=== PATIENT | male | born 1955 | race Caucasian/White ===

== ENCOUNTER 2021-08-12 20:58 | Observation (INO) | payer OTHER, SELFPAY ==
--- NOTE | ~2021-08-12 | CT_ITS ---
EXAMINATION: CT abdomen pelvis w con EXAM DATE: 08/13/2021 04:26 INDICATION: Bladder pain. Low abdominal pain. TECHNIQUE: Spiral CT of the abdomen and pelvis was performed following intravenous injection of 100 m L Omnipaque 350. Axial, coronal and sagittal images of the abdomen and pelvis were reviewed. The do se-length product (DLP) for this examination was 1168.28 mGy-cm. The exposure was tailored according to patient size (auto mA exposure control), and iterative reconstruction (ASIR) was used as addition al dose reduction technique. There is no prior study for comparison. FINDINGS: The liver, spleen, adrenal glands and pancreas are unremarkable. There are cholecystectomy clips. Portal and splenic veins are patent. Kidneys enhance symmetrically. There is no hydronephr osis. There is punctate calcification in the right superior calyx. The prostate is unremarkable. Bl adder is undistended with mildly indistinct wall, possible cystitis, or this could be reactive from i nflammation described below. There is no retroperitoneal or pelvic lymphadenopathy. There is mild scattered arteriosclerotic disease. Small umbilical fat-containing hernia. There is severe edema of the rectum, proctitis. There is inflammation surrounding the rectum and in t he presacral space. There is 7 x 9 cm mass like region on the right side of the rectum with different ial diagnosis including hematoma and solid soft tissue mass, malignancy. There is inflammation along the right side of the retroperitoneum contiguous to the right ureter. The appendix is normal. There is mild scattered colonic diverticulosis. There is no adjacent inflamm atory change to suggest diverticulitis. The stomach and small bowel are unremarkable. There is expec megan amount of colonic stool. No free intraperitoneal gas. The heart is normal in size. There are no pericardial or pleural effusions. The lung bases are unremarkable. There are no osteoblastic or osteolytic lesions identified. IMPRESSION: 1. Proctitis. Masslike region contiguous to left side of rectum which could be hematoma or solid sof t tissue mass. A follow-up pre and postcontrast CT scan can be obtained in 24 hours to help different iate. 2. Undistended bladder with indistinct wall which could be reactive or cystitis. Reviewed, dictated and finalized at location A. [facility] [employer] IMPRESSION: 1. Proctitis. Masslike region contiguous to left side of rectum which could be hematoma or solid soft tissue mass. A follow-up pre and postcontrast CT scan c an be obtained in 24 hours to help differentiate. 2. Undistended bladder with indistinct wall which could be reactive or cystiti s.
--- NOTE | ~2021-08-12 | CT_ITS ---
EXAMINATION: CT abdomen pelvis wo/w con EXAM DATE: 08/14/2021 10:01 INDICATION: 24 hour follow-up on rectal injury. See 08/13 report. TECHNIQUE: Spiral CT of the abdomen and pelvis was performed without and then with intravenous inject ion of 100 mL Omnipaque 350. Axial, coronal and sagittal images of the abdomen and pelvis were revi ewed. The dose-length product (DLP) for this examination was 2113.72 mGy-cm. The exposure was tailo red according to patient size (auto mA exposure control), and iterative reconstruction (ASIR) was use d as additional dose reduction technique. Comparison is made to prior examination from 08/13/2021. FINDINGS: Hyperdense masslike region between rectum and bladder demonstrates no enhancement, is consi stent with an acute hematoma, size unchanged at about 7 x 9 cm. There is been interval improvement in or out of the rectal wall edema. Still rather extensive perirectal inflammation and some persistent inflammation extending along the right side of the retroperitoneum, with patulous extrarenal pelvises bilaterally, but no caliectasis. No extraluminal gas or CT evidence of perforation. There is punctat e right superior calyceal stone. Bladder is unremarkable. Prostate normal in size. The liver, spleen, adrenal glands and pancreas are unremarkable. There are cholecystectomy clips. The bladder is unremarkable. There is no retroperitoneal or pelvic lymphadenopathy. There is mild scattered arteriosclerotic disease. There are no findings to suggest appendicitis. The stomach and small bowel are unremarkable. There is expected amount of colonic stool. No free intraperitoneal gas. The heart is normal in size. T here are no pericardial or pleural effusions. The lung bases are unremarkable. Several small sclero tic regions in pelvis, ribs and L4, probably bone islands, but correlation could be made with PSA lev els. Moderate size thoracic bridging endplate osteophytes. IMPRESSION: 1. Large hematoma between rectum and bladder, size stable. 2. Improving rectal wall edema. Persistent pelvic and right retroperitoneal inflammation. No extralu tee gas. 3. Several small sclerotic foci likely bone islands but recommend correlating with PSA levels. 4. Punctate right nephrolithiasis. Reviewed, dictated and finalized at location A. [facility] IMPRESSION: 1. Large hematoma between rectum and bladder, size stable. 2. Improving rectal wall edema. Persistent pelvic and right retroperitoneal in flammation. No extraluminal gas. 3. Several small sclerotic foci likely bone islands but recommend correlating with PSA levels. 4. Punctate right nephrolithiasis.
--- NOTE | ~2021-08-12 | XR_ITS ---
EXAMINATION: XR abdomen/kub 1V DATE: 08/14/2021 08:44 INDICATION: Proctitis. Rectal hematoma. Rectal penetration. TECHNIQUE: A supine view of the abdomen on 2 radiographs was obtained. COMPARISON: CT abdomen and pelvis 08/13/2021 FINDINGS: There are no dilated loops of bowel. Surgical clips in the right upper quadrant are likely from cholecystectomy. There are phleboliths in the pelvis. IMPRESSION: 1. Normal bowel gas pattern. Reviewed, dictated and finalized at location [facility]. [employer]
[2021-08-12 21:04] VITALS: BP 136/90; PULSE 110; RESP 22; TEMP 36.6; O2SAT 100
[2021-08-13] VITALS (12 sets, daily range): BP systolic 116–146; BP diastolic 59–96; PULSE 80–101; RESP 16–18; TEMP 36.7–37.2; O2SAT 95–100; BMI 32.8
--- NOTE | 2021-08-13 02:39 | ED.GENADULT ---
HPI - General Adult General Chief complaint: Urogenital-Male Stated complaint: bladder pain Time Seen by Provider: 08/13/21 02:39 Source: RN notes reviewed History of Present Illness HPI narrative: Patient presents emergency department from home for lower abdominal pain. Patient states symptoms began approximately 3:00 today. States she has some aching in the lower abdomen region he states that at that time he felt he needed to urinate but cannot urinate he states that he self caths himself approximately once a month secondary to him having some scar tissue down by his prostate he is followed by Dr. Jimenez for this. He states that pain self cath himself but had very little urine come out he states that following that he had tried taking a hot bath and again tried with little urine output states he continues to have aching in the lower abdomen he cannot sit down secondary to the discomfort he states that he has had 2 small episodes of urination in the emergency department he denies any fevers or chills chest pain shortness of breath or any other symptoms Related Data Home Medications Medication Instructions Recorded Confirmed Creon 1 cap PO QPM PRN 08/13/21 08/13/21 aspirin 81 mg PO HS 08/13/21 08/13/21 atorvastatin 20 mg PO HS 08/13/21 08/13/21 celecoxib 200 mg PO BID 08/13/21 08/13/21 diltiazem HCl 240 mg PO HS 08/13/21 08/13/21 losartan 50 mg PO HS 08/13/21 08/13/21 omeprazole 20 mg PO QPM PRN 08/13/21 08/13/21 tramadol 50 mg PO PRN PRN 08/13/21 08/13/21 Allergies Allergy/AdvReac Type Severity Reaction Status Date / Time No Known Allergies Allergy Unknown Verified 08/13/21 11:20 Review of Systems Review of Systems: Gen.: Denies fevers or chills ENT: Denies congestion Respiratory: Denies shortness of breath or cough CV: Denies chest pain or palpitations GI: Reports lower abdominal pain denies nausea, emesis or diarrhea reports difficulty urinating Musculoskeletal: Denies back pain or muscle pain Neuro: Denies numbness, tingling, weakness or focal weakness Skin: Denies rash Except as documented, all other systems reviewed and negative [facility] Past Medical History Medical History (Updated 08/14/21 @ 15:25 by Keyon Crum MD) Anxiety Benign prostate hyperplasia COVID-19 (01/2020) Hypercholesterolemia Hypertension (Unknown) Paroxysmal atrial fibrillation Status post cardiac ablation. Surgical History Surgical History History of bilateral inguinal hernia repair History of cardiac radiofrequency ablation History of cholecystectomy Laparoscopic cholecystectomy in History of endoscopic retrograde cholangiopancreatography History of right knee joint replacement (06/2021) History of tonsillectomy History of transurethral resection of prostate Family History Family History Father Emphysema lung Mother Brain cancer Sibling Sepsis Social History Social History Social History: Surrogate decision maker: Zuly Jeanette, spouse. Code status: Full code. Smoking status: Never smoker Alcohol intake: current Drinks per week: 1 Substance use: current Substance use type: does not use Additional living arrangements comments: Lives in [place] with his . Exam Narrative: APPEARANCE: No acute distress, nontoxic, resting in bed EYES: EOMI HEENT: Normocephalic, atraumatic, OMM RESPIRATORY: No respiratory distress Clear to auscultation bilaterally with no rhonchi wheezing or rales. CARDIOVASCULAR: Regular rate and rhythm without murmurs rubs or gallops. ABDOMINAL: Soft, nondistended tender palpation suprapubic, right lower quadrant left lower quadrant no tenderness right upper quadrant left upper quadrant no rebound or guarding MUSCULOSKELETAl: Moves all extremities. No clubbing, cyanosis or edema. NEUR
[2021-08-13 03:15] LABS: Alanine Aminotransferase 27 U/L (4-50); Albumin Level 4.5 g/dL (3.5-5.1); Alkaline Phosphatase 73 U/L (38-126); Anion Gap 12 mmol/L (8-16); Aspartate Amino Transferase 25 U/L (17-59); Bilirubin,Total 0.8 mg/dL (0.2-1.3); Blood Urea Nitrogen 23 mg/dL (9-20); Calcium 9.6 mg/dL (8.4-10.2); Carbon Dioxide 21 mmol/L (22-30); Chloride 106 mmol/L (98-107); Estimated CRCL calculation 75 ml/min; Estimated Glomerular Filt Rate > 60; Glucose 171 mg/dL (65-110); Potassium 4.4 mmol/L (3.4-5.0); Sodium 139 mmol/L (137-145)
[2021-08-13 03:20] LABS: Basophils Absolute Auto 0.1 K/mm3 (0.0-0.1); Basophils Percent Auto 0.2 % (0.2-1.2); Immature Granulocyte Absolute 0.15 K/mm3 (0.00-0.031); Immature Granulocyte Percent A 0.7 % (0-0.5); Lymphocytes Absolute Auto 0.82 K/mm3 (0.9-3.2); Mean Corpuscular HGB Conc 32.5 g/dl (32-36); Mean Corpuscular Hemoglobin 30.6 pg (26-34); Mean Corpuscular Volume 94.1 fl (80-100); Mean Platelet Volume 10.4 fl (7.4-10.4); Monocytes Absolute Auto 0.8 K/mm3 (0.1-0.6); Neutrophils Absolute Auto 18.9 K/mm3 (1.3-6.7); Neutrophils Percent Auto 91.1 % (45.5-73.1); Platelet Count Result 284 k/mm3 (150-375); Red Blood Count 4.25 M/mm3 (4.6-6.20); Red Cell Distribution Width 12.8 % (11.5-14.5); White Blood Count 20.7 K/mm3 (4.5-10.0)
[2021-08-13] MEDS: SODIUM CHLORIDE 0.9% IV 1,000 ML 999 ML IV CONT (03:50)
[2021-08-13] MEDS: MORPHINE SULFATE (*CRX) 4 MG/ML INJ 2 MG IV PUSH (04:06)
[2021-08-13 04:11] LABS: Lactic Acid Reflex 1.5 mmol/L (0.7-2.1)
[2021-08-13 04:40] LABS: Add Urine Microscopic? YES; Appearance Urine Clear (Clear); Bacteria Urine Trace /hpf; Bilirubin Urine Negative (Negative); Blood Urine 2+ (Negative); Color Urine Yellow (Yellow); Glucose Urine UA 1+ mg/dL (Negative); Ketones Urine Trace mg/dL (Negative); Leukocyte Esterase Ur Negative LEU/UL (Negative); Mucus Urine Heavy /lpf; Nitrate Urine Negative (Negative); Protein Urine 1+ mg/dL (Negative); Specific Grav Ur 1.025 (1.001-1.035); Squamous Epithelial Cell Urine Rare /hpf (Few); Urobilinogen Urine Negative mg/dL (<2.0); WBC Urine 0-3 /hpf
--- NOTE | 2021-08-13 08:02 | PC.NURSE ---
Assumed care of pt at this time, per edp esha pt awaiting surgery consult call back. Pt provided warm blanket and lights dimmed, vss.
[2021-08-13] MEDS: SODIUM CHLORIDE 0.9% IV 1,000 ML 125 ML IV CONT ×2 (08:22→16:31)
[2021-08-13 08:42] LABS: Prothrombin Time 13.4 Seconds (11.1-14.7)
[2021-08-13 08:43] LABS: Partial Thromboplastin Time 32.6 SECONDS (22.3-36.8)
[2021-08-13 09:09] LABS: Hematocrit 33.7 % (42.0-52.0); Hemoglobin 11.2 g/dL (14.0-18.0)
--- NOTE | 2021-08-13 09:56 | PC.NURSE ---
Pt ambulatory to restroom with steady gait, pt reports pain was under control until he got up to use the restroom.
[2021-08-13] MEDS: MORPHINE SULFATE (*CRX) 4 MG/ML INJ IV PUSH ×2 (10:11→15:30)
--- NOTE | 2021-08-13 10:14 | PC.NURSE ---
Pt medicated per oct, placed back on stretcher, call light in reach.
--- NOTE | 2021-08-13 10:18 | PC.NURSE ---
pt report called to Elisha in pacu at this time, pt to be transferred to [facility]. Pt updated on plan of care.
--- NOTE | 2021-08-13 11:14 | ADMGEN ---
This patient, Daniel Reid, was admitted to [place] [id number]. Patient/family oriented to hospital policies and general routines including ID bracelet, bed and alarms, visiting hours, pain management, procedures, bathroom and other care routines, personal items, smoking policy, room service/diet, and visiting hours. Information on how to activate the Rapid Response Team has been discussed. Patient/Family are encouraged to report perceived risks to care and to ask questions if they do not understand what they are told or what they should do.
--- NOTE | 2021-08-13 13:45 | WPDCN ---
Assessment and Plan Assessment and plan (1) Intra-abdominal hematoma: Status: Acute Assessment and Plan: CT of the abdomen and pelvis showed evidence of proctitis with a 7 x 9 cm presumed hematoma in the pelvis contiguous with the right side of the rectum, felt to be related to rectal trauma as per HPI. Empirically has been started on Zosyn and he will be NPO for now. Hemoglobin and hematocrit will be trended and he will be transfused if indicated. Aspirin and Celebrex are on hold in case he requires surgery. Analgesics available as needed. Case discussed with Dr. Crum and the plan is for repeat CT of the abdomen pelvis tomorrow without and then with contrast. (2) Proctitis: Code(s): K62.89 - Other specified diseases of anus and rectum Status: Acute Assessment and Plan: Plan is as detailed above. (3) Leukocytosis: Code(s): D72.829 - Elevated white blood cell count, unspecified Status: Acute Assessment and Plan: On empiric Zosyn for possible associated infection. May be stress response. Blood cultures pending. (4) Hyperglycemia: Code(s): R73.9 - Hyperglycemia, unspecified Status: Acute Assessment and Plan: Check fasting glucose and hemoglobin A1c. (5) Hypertension: Code(s): I10 - Essential (primary) hypertension Status: Chronic Assessment and Plan: His antihypertensives will be reviewed and resumed as appropriate. Dr. Crum is okay with medications with sips of water. (6) Paroxysmal atrial fibrillation: Code(s): I48.0 - Paroxysmal atrial fibrillation Status: Acute Assessment and Plan: Status post cardiac ablation. He is in a sinus rhythm. (7) Benign prostate hyperplasia: Code(s): N40.0 - Benign prostatic hyperplasia without lower urinary tract symptoms Status: Inactive Assessment and Plan: No acute issues. He had a TURP done several years ago. Additional Plan Thank you for allowing us to participate in this patient's care. Please do not hesitate to contact us with any questions. Supervising physician for this medical consultation is Dr. Juan Centeno. [facility] Data of Consult Date/Time: 08/13/21 13:45 Requesting Physician: Keyon Crum MD Primary Care Provider: PHYSICIAN NOT ON STAFF Consult Narrative Narrative: This is a pleasant 66-year-old male with hypertension, benign prostatic hyperplasia, and paroxysmal atrial fibrillation status post ablation whom the hospitalist service has been consulted for management of his medical conditions. Yesterday afternoon the patient used a vibrator in his rectum in approximately 2 hours thereafter he began feeling some discomfort in the suprapubic region and to a lesser extent in the rectum. He thought that perhaps he was retaining urine given his history of BPH requiring intermittent self catheterization, and he tried to self catheterization without relief. His pain got quite severe and several hours thereafter he developed chills, sweats, and nausea and he presented to the emergency department. A CT of the abdomen and pelvis showed proctitis with a masslike region contiguous with the right side of the rectum which could be a hematoma or soft tissue mass. The bladder was nondistended with an indistinct wall. He has since been started on broad-spectrum antibiotics and IV fluids and he was admitted to the surgery service. As mentioned we have been consulted to help manage his medical conditions. At the time my evaluation he is still having suprapubic discomfort and he is having some tenderness in the perirectal region. He had a small soft bowel movement earlier today without pain though he does mention having a small amount of bright red blood on the toilet tissue. Of note the patient does take a baby aspirin daily however did not take it this
--- NOTE | 2021-08-13 15:54 | PM.CNGS ---
Assessment and Plan Assessment and plan (1) Intra-abdominal hematoma: Status: Acute History of Present Illness Consult details Consult date: 08/13/21 Review of Systems Review of Systems: All systems reviewed & are unremarkable except as noted in HPI and below Constitutional: Constitutional: Reports as per HPI, Denies chills, Denies fatigue and Denies fever(s) Eyes: Eyes: Reports no additional eye complaints ENT: Reports system reviewed and no additional complaints, except as documented and Reports Normal hearing present Cardiovascular: Cardiovascular: Reports no additional cardiovascular complaints, Denies chest pain and Denies leg edema Respiratory: Respiratory: Reports no additional respiratory complaints, Denies cough and Denies dyspnea Gastrointestinal: Gastrointestinal: Reports as per HPI, Reports no additional gastrointestinal complaints, Reports abdominal pain (suprapubic pain), Denies bloating, Denies hematochezia, Denies change in bowel habits, Denies change in stool character, Denies constipation, Denies diarrhea, Denies nausea and Denies vomiting Genitourinary: Genitourinary: Denies hematuria, Denies dysuria, Denies penile discharge, Denies urinary frequency, Reports urinary hesitancy (has previously had to catheterize himself at home regularly), Denies urinary incontinence and Denies urinary urgency Musculoskeletal: Musculoskeletal: Denies deformity and Denies joint swelling Integumentary/Breasts: Skin/Breast: Denies wounds and Denies jaundice Neurologic: Reports system reviewed and no additional complaints, except as documented, Denies dizziness, Denies focal weakness, Denies numbness and Denies tingling PMFSH Past Medical History Medical History Anxiety Benign prostate hyperplasia COVID-19 (01/2020) Hypercholesterolemia Hypertension Paroxysmal atrial fibrillation Status post cardiac ablation. Surgical History Surgical History History of bilateral inguinal hernia repair History of cardiac radiofrequency ablation History of cholecystectomy Laparoscopic cholecystectomy in 1989' History of endoscopic retrograde cholangiopancreatography History of right knee joint replacement (06/2021) History of tonsillectomy History of transurethral resection of prostate Family History Family History Father Emphysema lung Mother Brain cancer Sibling Sepsis Social History Social History Social History: Surrogate decision maker: Zuly Reid, spouse. Code status: Full code. Smoking status: Never smoker Alcohol intake: current Drinks per week: 1 Substance use: current Substance use type: does not use Additional living arrangements comments: Lives in [place] with his . Meds Home Medications and Allergies Home Medications Medication Instructions Recorded Confirmed Type aspirin 81 mg PO HS 08/13/21 08/13/21 History atorvastatin 20 mg PO HS 08/13/21 08/13/21 History celecoxib 200 mg PO BID 08/13/21 08/13/21 History diltiazem HCl 240 mg PO HS 08/13/21 08/13/21 History [id number] [Creon] 1 cap PO QPM PRN 08/13/21 08/13/21 History losartan 50 mg PO HS 08/13/21 08/13/21 History omeprazole 20 mg PO QPM PRN 08/13/21 08/13/21 History tramadol 50 mg PO PRN PRN 08/13/21 08/13/21 History Allergies Allergy/AdvReac Type Severity Reaction Status Date / Time No Known Allergies Allergy Unknown Verified 08/13/21 11:20 Vital Signs Vital Signs - 24 hr 08/12/21 21:04 08/13/21 02:27 08/13/21 03:19 Temperature 97.8 F Pulse Rate 110 H 100 98 Respiratory Rate 22 H 18 18 Blood Pressure 136/90 123/81 139/90 Pulse Oximetry 100 97 100 08/13/21 04:32 08/13/21 05:01 08/13/21 05:10 Temperature Pulse Rate 90 93 95 Respiratory Rate 18 1
--- NOTE | 2021-08-13 16:16 | PM.IMHP ---
H&P: HPI History of Present Illness Date/Time: 08/13/21 14:16 Chief Complaint: Suprapubic pain Narrative: This is a 66-year-old male with a history of hypertension, paroxysmal atrial fibrillation s/p cardiac ablation, and BPH, who presented to the ER with complaints of suprapubic pain. He reports that yesterday around 2:00 pm he used a vibrator in his rectum and about 2 hours later developed an onset of rectal discomfort and suprapubic abdominal pain. He has required self catheterization at home due to scar tissue following his TURP almost 10 years ago, but only has to do this now about monthly. He reports trying to catheterize himself at home without relief. Due to the continued pain, he presented to the ER for evaluation. CT scan of the abdomen and pelvis showed procitis with a masslike region contiguous to right side of rectum which could be hematoma or solid soft tissue mass, and a nondistended bladder with an indistinct wall. Labs showed a WBC count of 20,000, hemoglobin 13, hematocrit 40, and lactic acid 1.5. His heart rate was initially 110 but this has come down to normal with his heart rate currently in the 80's. Blood pressure has been stable. Our service was consulted by the ED physician for the possible hematoma contiguous to the rectum. The patient has been admitted and started on broad-spectrum IV antibiotics, IV fluids, and made NPO. He has had a repeat H/H that showed his hemoglobin came down to 11.2. The patient remains hemodynamically stable. The patient is now seen in pre-operative area as an overflow patient. He still reports some suprapubic pain and mild rectal discomfort. He feels the Morphine did help his pain slightly for about 30 minutes and then wore off. He denies bloating, nausea, or vomiting. No other complaints. He reports flatus and has had a total of 4 small but formed bowel movements overnight and into this morning. Review of Systems Review of Systems: All systems reviewed & are unremarkable except as noted in HPI and below Constitutional: Constitutional: Reports as per HPI, Denies chills, Denies fatigue and Denies fever(s) Eyes: Eyes: Reports no additional eye complaints ENT: Reports system reviewed and no additional complaints, except as documented and Reports Normal hearing present Cardiovascular: Cardiovascular: Reports no additional cardiovascular complaints, Denies chest pain, Denies leg edema and Denies dyspnea Respiratory: Respiratory: Reports no additional respiratory complaints, Denies cough and Denies dyspnea Gastrointestinal: Gastrointestinal: Reports as per HPI, Reports no additional gastrointestinal complaints, Reports abdominal pain (suprapubic), Denies melena, Denies bloating, Denies hematochezia, Denies change in bowel habits, Denies change in stool character, Denies constipation, Denies diarrhea, Denies nausea and Denies vomiting Genitourinary: Genitourinary: Denies hematuria, Denies dysuria, Denies flank pain, Denies penile discharge, Denies urinary frequency, Reports urinary hesitancy (hx BPH, TURP, previously required self catheterization at home) and Denies urinary urgency Musculoskeletal: Musculoskeletal: Denies deformity and Denies joint swelling Integumentary/Breasts: Skin/Breast: Denies wounds and Denies jaundice Neurologic: Reports system reviewed and no additional complaints, except as documented, Reports Normal hearing present, Denies focal weakness, Denies numbness and Denies tingling PMFSH Past Medical History Medical History Anxiety Benign prostate hyperplasia COVID-19 (01/2020) Hypercholesterolemia Hypertension Paroxysmal atrial fibrillation Status post cardiac ablation. Surgical History Surgical History History of bilateral inguinal hernia repair History of cardiac radiofrequency ablation History of cholecystectomy Laparoscopic cholecystectomy in Hist
[2021-08-13 18:16] LABS: Hematocrit 33.9 % (42.0-52.0); Hemoglobin 11.3 g/dL (14.0-18.0)
[2021-08-14 00:21] VITALS: TEMP 37.1
[2021-08-14 00:54] LABS: Hematocrit 33.2 % (42.0-52.0); Hemoglobin 10.8 g/dL (14.0-18.0)
[2021-08-14] MEDS: SODIUM CHLORIDE 0.9% IV 1,000 ML 125 ML IV CONT (01:23)
[2021-08-14 01:25] VITALS: BP 130/70; PULSE 85; RESP 18; O2SAT 98
[2021-08-14] MEDS: LOSARTAN POTASSIUM 50 MG TABLET PO (01:30)
[2021-08-14] MEDS: traMADol HCL (*CRX) 50 MG TABLET PO (02:08)
[2021-08-14 05:39] VITALS: BP 127/98; PULSE 82; RESP 18; TEMP 36.8; O2SAT 94
[2021-08-14 06:28] LABS: Basophils Absolute Auto 0.1 K/mm3 (0.0-0.1); Basophils Percent Auto 0.6 % (0.2-1.2); Eosinophils Absolute Auto 0.2 K/mm3 (0-0.3); Eosinophils Percent Auto 1.4 % (0-4.4); Hematocrit 31.8 % (42.0-52.0); Hemoglobin 10.3 g/dL (14.0-18.0); Immature Granulocyte Absolute 0.08 K/mm3 (0.00-0.031); Immature Granulocyte Percent A 0.7 % (0-0.5); Lymphocytes Percent Auto 17.6 % (18.3-44.2); Mean Corpuscular HGB Conc 32.4 g/dl (32-36); Mean Corpuscular Hemoglobin 30.7 pg (26-34); Mean Corpuscular Volume 94.6 fl (80-100); Mean Platelet Volume 10.3 fl (7.4-10.4); Monocytes Absolute Auto 0.8 K/mm3 (0.1-0.6); Monocytes Percent Auto 7.8 % (2.6-8.5); Neutrophils Absolute Auto 7.8 K/mm3 (1.3-6.7); Neutrophils Percent Auto 71.9 % (45.5-73.1); Platelet Count Result 179 k/mm3 (150-375); Red Blood Count 3.36 M/mm3 (4.6-6.20); Red Cell Distribution Width 12.9 % (11.5-14.5); White Blood Count 10.8 K/mm3 (4.5-10.0)
[2021-08-14 06:39] LABS: Hemoglobin A1C 5.4 % (<5.7)
[2021-08-14 06:40] LABS: Alanine Aminotransferase 20 U/L (4-50); Albumin Level 3.5 g/dL (3.5-5.1); Alkaline Phosphatase 53 U/L (38-126); Anion Gap 5 mmol/L (8-16); Aspartate Amino Transferase 20 U/L (17-59); Bilirubin,Total 0.6 mg/dL (0.2-1.3); Blood Urea Nitrogen 12 mg/dL (9-20); Calcium 8.3 mg/dL (8.4-10.2); Carbon Dioxide 26 mmol/L (22-30); Chloride 106 mmol/L (98-107); Estimated CRCL calculation 74 ml/min; Estimated Glomerular Filt Rate > 60; Glucose 103 mg/dL (65-110); Potassium 3.6 mmol/L (3.4-5.0); Sodium 137 mmol/L (137-145)
[2021-08-14 06:54] LABS: Magnesium 2.1 mg/dL (1.6-2.3)
--- NOTE | 2021-08-14 07:30 | PM.IMPN ---
Progress Note: A&P Assessment and Plan (1) Intra-abdominal hematoma: Status: Acute Assessment and Plan: CT of the abdomen and pelvis showed proctitis with a 7 x 9 cm presumed hematoma in the pelvis contiguous with the right side of the rectum Related to rectal trauma Continue Zosyn 3.375 Q6hr Hemoglobin and hematocrit stable at this time 10.3/31.8, however are tending down, continue to trend Q6hr Continue to hold Aspirin and Celebrex, since H/H continues to trend down Analgesics: Tylenol 1000mg Q6hr, Dilaudid 0.5mg IV Q2hr PRN, Tramadol 50mg PO Q6hr PRN Dr. Crum Consulted thank you repeat CT of the abdomen pelvis w/wo contrast pending KUB pending Continue to keep patient NPO (2) Proctitis: Code(s): K62.89 - Other specified diseases of anus and rectum Status: Acute Assessment and Plan: Plan is as detailed above. (3) Leukocytosis: Code(s): D72.829 - Elevated white blood cell count, unspecified Status: Acute Assessment and Plan: WBC down to 10.8 today, down from 20.7 upon admission Continue IV Zosyn Blood culture NGTD Continue to trend (4) Hyperglycemia: Code(s): R73.9 - Hyperglycemia, unspecified Status: Acute Assessment and Plan: Glucose 171 upon admission A1c 5.4 Glucose this morning 103 No indication for accu cheks at this time Continue to trend glucose per am labs (5) Hypertension: Onset Date: Unknown Code(s): I10 - Essential (primary) hypertension Status: Chronic Assessment and Plan: Current BP is 112/66 Continue home cardizem 240mg PO at night, losartan 50mg PO at night Trend BP Adjust therapy as indicated (6) Paroxysmal atrial fibrillation: Code(s): I48.0 - Paroxysmal atrial fibrillation Status: Acute Assessment and Plan: Status post cardiac ablation Per auscultation rate and rhythm is normal (7) Benign prostate hyperplasia: Code(s): N40.0 - Benign prostatic hyperplasia without lower urinary tract symptoms Status: Inactive Assessment and Plan: No acute issues reported TURP done several years ago trend urine output Bladder scan if indicated (8) Hyperlipidemia: Code(s): E78.5 - Hyperlipidemia, unspecified Status: Acute Assessment and Plan: LFT are normal will hold atorvastatin for now Restart when appropriate Time Spent With Patient Time with patient: 25 - 35 minutes Subjective Date/time seen: 08/14/21 07:30 Interval history: Date/Time: 08/13/21 13:45 Narrative: This is a pleasant 66-year-old male with hypertension, benign prostatic hyperplasia, and paroxysmal atrial fibrillation status post ablation whom the hospitalist service has been consulted for management of his medical conditions. Yesterday afternoon the patient used a vibrator in his rectum in approximately 2 hours thereafter he began feeling some discomfort in the suprapubic region and to a lesser extent in the rectum. He thought that perhaps he was retaining urine given his history of BPH requiring intermittent self catheterization, and he tried to self catheterization without relief. His pain got quite severe and several hours thereafter he developed chills, sweats, and nausea and he presented to the emergency department. A CT of the abdomen and pelvis showed proctitis with a masslike region contiguous with the right side of the rectum which could be a hematoma or soft tissue mass. The bladder was nondistended with an indistinct wall. He has since been started on broad-spectrum antibiotics and IV fluids and he was admitted to the surgery service. As mentioned we have been consulted to help manage his medical conditions. At the time my evaluation he is still having suprapubic discomfort and he is having some tenderness in the perirectal region. He had a small soft bowel movement earlier today without pain though he does mention gunderson
--- NOTE | 2021-08-14 07:30 | P.PNIM_ITS ---
Progress Note: A&P Assessment and Plan (1) Intra-abdominal hematoma: Status: Acute Assessment and Plan: * CT of the abdomen and pelvis showed proctitis with a 7 x 9 cm presumed hematoma in the pelvis contiguous with the right side of the rectum * Related to rectal trauma * Continue Zosyn 3.375 Q6hr * Hemoglobin and hematocrit stable at this time 10.3/31.8, however are tending down, continue to trend Q6hr * Continue to hold Aspirin and Celebrex, since H/H continues to trend down * Analgesics: Tylenol 1000mg Q6hr, Dilaudid 0.5mg IV Q2hr PRN, Tramadol 50mg PO Q6hr PRN * Dr. Crum Consulted thank you * repeat CT of the abdomen pelvis w/wo contrast pending * KUB pending * Continue to keep patient NPO (2) Proctitis: Code(s): K62.89 - Other specified diseases of anus and rectum Status: Acute Assessment and Plan: * Plan is as detailed above. (3) Leukocytosis: Code(s): D72.829 - Elevated white blood cell count, unspecified Status: Acute Assessment and Plan: * WBC down to 10.8 today, down from 20.7 upon admission * Continue IV Zosyn * Blood culture NGTD * Continue to trend (4) Hyperglycemia: Code(s): R73.9 - Hyperglycemia, unspecified Status: Acute Assessment and Plan: * Glucose 171 upon admission * A1c 5.4 * Glucose this morning 103 * No indication for accu cheks at this time * Continue to trend glucose per am labs (5) Hypertension: Onset Date: Unknown Code(s): I10 - Essential (primary) hypertension Status: Chronic Assessment and Plan: * Current BP is 112/66 * Continue home cardizem 240mg PO at night, losartan 50mg PO at night * Trend BP * Adjust therapy as indicated (6) Paroxysmal atrial fibrillation: Code(s): I48.0 - Paroxysmal atrial fibrillation Status: Acute Assessment and Plan: * Status post cardiac ablation * Per auscultation rate and rhythm is normal (7) Benign prostate hyperplasia: Code(s): N40.0 - Benign prostatic hyperplasia without lower urinary tract symptoms Status: Inactive Assessment and Plan: * No acute issues reported * TURP done several years ago * trend urine output * Bladder scan if indicated (8) Hyperlipidemia: Code(s): E78.5 - Hyperlipidemia, unspecified Status: Acute Assessment and Plan: * LFT are normal * will hold atorvastatin for now * Restart when appropriate Time Spent With Patient Time with patient: 25 - 35 minutes Subjective Date/time seen: 08/14/21 07:30 Interval history: Date/Time: 08/13/21 13:45 Narrative: This is a pleasant 66-year-old male with hypertension, benign prostatic hyperplasia, and paroxysmal atrial fibrillation status post ablation whom the hospitalist service has been consulted for management of his medical conditions. Yesterday afternoon the patient used a vibrator in his rectum in approximately 2 hours thereafter he began feeling some discomfort in the suprapubic region and to a lesser extent in the rectum. He thought that perhaps he was retaining urine given his history of BPH requiring intermittent self catheterization, and he tried to self catheterization without relief. His pain got quite severe and several hours thereafter he developed chills, sweats, and nausea and he presented to the emergency department. A CT of the abdomen and pelvis showed proctitis with a masslike region contiguous with the right side of the rectum which could be a hem
[2021-08-14 08:00] VITALS: BP 112/66; PULSE 84; RESP 16; TEMP 36.9; O2SAT 95
[2021-08-14] MEDS: PANTOPRAZOLE SODIUM IV 40 MG VIAL IV PUSH (09:03)
[2021-08-14 12:38] LABS: Hematocrit 34.2 % (42.0-52.0); Hemoglobin 11.1 g/dL (14.0-18.0)
[2021-08-14 14:18] VITALS: BP 122/65; PULSE 81; RESP 14; TEMP 36.9; O2SAT 96
--- NOTE | 2021-08-14 15:15 | PM.DS ---
DS: Admitting Diagnosis Discharge Date 08/14/2021 Admitting Diagnosis 1. Perirectal hematoma 2. History of BPH status post transurethral prostatectomy. DS: Discharge Diagnosis Discharge Diagnosis (1) Perirectal hematoma: Onset Date: ~07/2021 Code(s): S36.62XA - Contusion of rectum, initial encounter Status: Acute Assessment and Plan: This was the main reason for the patient's admission. After workup in ED, patient admitted to intro rectal stimulation with a vibrator. This probably caused an injury with hematoma forming between the urinary bladder and rectum more to the right. Patient was Observed [address] CT scan with and without contrast was completed revealing no hydronephrosis on the right and no significant change in size of the retroperitoneal hematoma along the rectum between it and the urinary bladder. during the period of observation he was able to urinate without difficulty and also had some loose stools. No free intra-abdominal air or air within the hematoma was noted on repeat CT scan and therefore, it was not felt that there was any rectal full-thickness injury. Patient's white count came down appropriately while on IV antibiotics and he will be sent home on 5 days of oral antibiotics ( Levaquin and Flagyl). (2) Hypertension: Onset Date: Unknown Code(s): I10 - Essential (primary) hypertension Status: Chronic Assessment and Plan: Initial and presentation is blood pressure was up but it came down nicely as we resumed his usual home meds. (3) Hyperglycemia: Code(s): R73.9 - Hyperglycemia, unspecified Status: Acute Assessment and Plan: Possibly more related to stress and inflammation at the time of his admission. Repeat glucose on CMP day of discharge is close to normal. (4) Proctitis: Code(s): K62.89 - Other specified diseases of anus and rectum Status: Acute Assessment and Plan: Inflammation near the rectum probably related to patient is self stimulation. Also to possible bruising of the rectal wall with development of hematoma between the rectum and bladder. (5) Leukocytosis: Code(s): D72.829 - Elevated white blood cell count, unspecified Status: Acute DS: Summary Hospital Course Reason for hospitalization: Inflammation and hematoma just outside the rectum between it and the bladder. Hospital Course: His self stimulation probably caused an injury with hematoma forming between the urinary bladder and rectum more to the right. Patient was observed 24 hours [address] a repeat CT scan with and without contrast was completed revealing, no hydronephrosis on the right, and no significant change in size of the retroperitoneal hematoma along the rectum between it and the urinary bladder. No free intra-abdominal air or air within the hematoma was noted on repeat CT scan and therefore was it not felt that there was any rectal full-thickness injury. (the inflammation seen on the original CT scan 24 hours prior had settled significantly). Patient's white count came down appropriately while on IV antibiotics and he will be sent home on 5 days of oral antibiotics ( Levaquin and Flagyl). patient will also use heat at home on the area gently early to prevent any injury to the skin. He will use tramadol that he already has + I renewed to fresh prescription for any pain that he has and try to gradually wean back on this over the next 3-4 days. He will be followed up in the office in 1 week. Status at Discharge Cognitive/behavioral status at discharge: Normal Functional status at discharge: independent ambulation Overall status at discharge: patient is back to baseline Time Spent with Patient Time attestation: Total time spent providing and/or coordinating discharge services: Time spent: Greater than 30 minutes Specific discharge activities: 1. Discussion of dietary restrictions for the next week 2. Arrangements of
--- NOTE | 2021-08-14 16:54 | PC.NURSE ---
PT DISCHARGED HOME TO .
== END 2021-08-14 15:45 | disposition home or self-care (01) ==
LOC: ANHED 08-13 07:56 → ANHSUROVER 08-13 10:38
PROVIDERS: Nurse Practitioner; Nurse Practitioner Family; Physician Assistant; Admitting Provider Surgery; Emergency Provider Emergency Medicine; Visit Provider Surgery
DX: S36.62XA Contusion of rectum, initial encounter (principal); K62.89 Other specified diseases of anus and rectum; X58.XXXA Exposure to other specified factors, initial encounter; D72.829 Elevated white blood cell count, unspecified; R73.9 Hyperglycemia, unspecified; I10 Essential (primary) hypertension; K64.4 Residual hemorrhoidal skin tags; E78.00 Pure hypercholesterolemia, unspecified; F41.9 Anxiety disorder, unspecified; I48.0 Paroxysmal atrial fibrillation; Z79.82 Long term (current) use of aspirin; Z86.16 Personal history of COVID-19
CPT/HCPCS: 36415; 74018; 74177; 74178; 80053; 81001; 83036; 83605; 83735; 85014; 85018; 85025; 85610; 85730; 86850; 86900; 86901; 87040; 96361; 96365; 96367; 96375; 96376; 99285; A9270; C9113; G0378; J0131; J2270; J2543; J7030; Q9967